=== PATIENT | male | born 1970 | race Caucasian/White ===

== ENCOUNTER → 2018-11-03 | Day surgery (SDC) | payer OTHER ==
[~2018-11-03] MED LIST: ASPIRIN325 MG PO; ATORVASTATIN CA20 MG PO; ATORVASTATIN CA40 MG PO; EPHEDRINE SULFATE INJ 50 MG/10 ML SYR ONE; FENTANYL CITRATE/PF 100MCG/2 ML INJ ONE; FLAXSEED1000 MG PO; HYOSCYAMINE SULFATE 0.5 MG/ML INJ ONE; IRON PO; JANUVIA100 MG PO; LIDOCAINE HCL 2% LOCAL INJ 5 ML SDV VIAL INJ ONE; LISINOPRIL5 MG; MEGA RED PO; METFORMIN HCL500 MG; METFORMIN HCL500 MG PO; PROPOFOL IV EMULSION 10 MG/ML 20 ML VIAL ONE; pravastatin
[2018-11-03 14:10] VITALS: BP 105/73
--- NOTE | 2018-11-03 22:54 | Operative Report ---
DATE OF PROCEDURE: 11/03/2018 PROCEDURE: EGD with biopsies and colonoscopy with polypectomy. INDICATIONS FOR EGD: Acid reflux, bloating. INDICATIONS FOR COLONOSCOPY: Surveillance colonoscopy, personal history of colon polyps, and sister with colon cancer. MEDICATIONS: The patient was done under MAC. Please anesthesiologist's note. PROCEDURE IN DETAIL: With the patient in left lateral decubitus position, a flexible fiberoptic Olympus gastroscope was introduced into the esophagus under direct visualization without any difficulty. There were some patchy erythema noted in the distal esophagus. A minute tongue of velvety red mucosa was noted to extend proximally from the GE junction, that was biopsied to rule out Cole's. There was a minute nodule noted and a small sliding hiatal hernia and that was biopsied. The scope was then advanced with ease into the stomach. Mucosa overlying the antrum and the body revealed some patchy intense erythema and moderate edema and biopsies were obtained and sent to stain for H pylori. Pylorus was of normal contour and shape, was intubated with ease and the scope was advanced all the way to the second portion of the duodenum. The scope was then withdrawn slowly and mucosa overlying the proximal second portion and the duodenal bulb grossly appeared to be within normal limits. Biopsies were obtained to rule out sprue. The scope was then withdrawn back into the stomach and retroflexed. Mucosa overlying the fundus and the cardia appeared to be within normal limits. The scope was then straightened out and was subsequently withdrawn. The patient tolerated the procedure well. IMPRESSION: 1. Distal esophagitis, mild. 2. Rule out Cole esophagus. 3. Small sliding hiatal hernia. 4. Minute nodule in hiatal hernia sac, biopsied. 5. Gastritis, biopsied. Biopsies sent to stain for Helicobacter pylori. 6. Rule out sprue. PLAN: Followup pathology. Initiate Protonix 40 mg 1 p.o. q.a.m. before meal. PROCEDURE IN DETAIL: The patient was then turned around after adequate lubrication of the anal canal. A flexible fiberoptic Olympus colonoscope was inserted into the rectum with ease and advanced all the way to the cecum. Minute polyps hot biopsied from the cecum and the polypectomy site was hemoclipped. The mucosa overlying the ascending and the transverse grossly appeared to be within normal limits. There were some patchy mild inflammatory changes noted in the left colon and random biopsies were obtained. Two polyps were hot biopsied from the sigmoid colon. The scope was then retroflexed into the distal rectum and small internal hemorrhoids were noted, none of which was actively bleeding. The scope was then straightened out and was subsequently withdrawn. The patient tolerated the procedure well. IMPRESSION: 1. Cecal polyp, hot biopsied, site hemoclipped. 2. Sigmoid colon polyps x2, hot biopsied. 3. Internal hemorrhoids, none actively bleeding. PLAN: Followup pathology. Initiate high-fiber and low-fat diet. Initiate high-fiber supplement. The patient might benefit from a followup colonoscopy in 3 years. Pelon Serrano MD [facility] – [place] /[id number] cc: Azeem Lock
--- OUTSIDE RECORDS SUMMARY | 2018-11-04 09:12 | XMS REPORT | Clinical Summary ---
Author Author [facility] Organization [facility] Address Unknown Phone Unavailable Care Team Providers Care Ammonia Nitrate Operator Name Role Phone Paul Eller MD PCP Allergies No Known Allergies Medications End Date Status Medication Sig Dispensed Refills Start Date Active traMADol (ULTRAM) 50 mg Take 50 mg by 0 tablet mouth every 6 (six) hours as needed for moderate pain. Active aspirin 325 MG tablet Take 325 mg 0 by mouth daily. On hold for surgery since 03/21/2018 Active atorvastatin (LIPITOR) 80 Take 80 mg by 0 MG tablet mouth daily. Active lisinopril Take 10 mg by 0 (PRINIVIL,ZESTRIL) 10 mg mouth daily. tablet Active celecoxib (CeleBREX) 200 Take 200 mg 0 MG capsule by mouth daily as needed for mild pain. Active garlic (GARLIQUE) 5,000 Take 1 tablet 0 mcg tablet by mouth daily. Active omega 1-jvw-lvb-fish oil Take 1 0 (FISH OIL) 100-160-1,000 capsule by mg capsule mouth daily. Active cinnamon bark (CINNAMON Take 1 tablet 0 ORAL) by mouth daily. Active metFORMIN (GLUCOPHAGE) Take 500 mg 0 500 mg tablet by mouth 2 (two) times a day with meals. 03/28/2018 Discontinued aspirin 325 MG tablet Take 325 mg 0 by mouth every morning. 03/28/2018 Discontinued lisinopril Take 10 mg by 0 (PRINIVIL,ZESTRIL) 10 mg mouth every tablet morning. 03/28/2018 Discontinued atorvastatin (LIPITOR) 80 Take 80 mg by 1 05/10/201 MG tablet mouth every 8 morning. 03/28/2018 Discontinued metFORMIN (GLUCOPHAGE) Take 500 mg 1 01/20/201 500 mg tablet by mouth 2 8 (two) times a day with meals. 03/29/2018 Discontinued gabapentin (NEURONTIN) Take 300 mg 0 300 mg capsule by mouth 3 (three) times a day. 04/29/2018 HYDROcodone-acetaminophen Prescription 0 (NORCO) 10-325 mg per provided by [address] Renner 04/29/2018 carisoprodol (SOMA) 350 Prescription 0 MG tablet provided by 8 Dr. Renner 04/05/2018 methylPREDNISolone Take 1 tablet 15 tablet 0 (MEDROL) 16 MG tablet (16 mg total) 8 by mouth 3 (three) times a day for 5 days. Active Problems Problem Noted Date Post laminectomy syndrome 09/01/2018 Lumbosacral radiculopathy at S1 03/28/2018 Diabetic mononeuropathy associated with type 2 diabetes mellitus 03/03/2018 Sciatica of left side 03/03/2018 Resolved Problems Problem Noted Date Resolved Date Lumbar radiculopathy 03/03/2018 04/25/2018 HNP (herniated nucleus pulposus), lumbar 03/03/2018 04/25/2018 Encounters Care Team Description Date Type Specialty Jaylon Renner MD Post laminectomy syndrome (Primary Dx) 09/01/2018 Office Visit Neurosurgery Isabela Pierce LVN 06/27/2018 Telephone Neurosurgery Jaylon Renner MD Diabetic mononeuropathy associated with type 2 diabetes mellitus (Primary Dx); Lumbosacral radiculopathy at S1 04/25/2018 Office Visit Neurosurgery Isabela Pierce, LIAM 03/31/2018 Orders Only Neurosurgery Isabela Pierce LVN 03/30/2018 Telephone Neurosurgery Jaylon Renner MD Lumbar Laminectomy Discectomy Left L5-S1 03/28/2018 Surgery General Surgery Aydin Gutierrez, ALGORITHM DEVELOPER 03/28/2018 Anesthesia General Surgery Event Jaylon Renner MD RehreMichael milton, Lumbosacral radiculopathy at S1 (Primary Dx) 03/28/2018 Hospital Neurosurgery - Encounter 03/29/2018 Isabela Pierce LVN 03/28/2018 Telephone Neurosurgery Jaylon Renner MD Preop testing (Primary Dx) 03/24/2018 Pre-Admit Pre-Admission Testing Testing Appointment Jaylon Renner MD Lumbar radiculopathy (Primary Dx); HNP (herniated nucleus pulposus), lumbar 03/24/2018 Office Visit Jaylon Caldwell MD Lumbar radiculopathy (Primary Dx); Diabetic mononeuropathy associated with type 2 diabetes mellitus; Sciatica of left side; HNP (herniated nucleus pulposus), lumbar 03/03/2018 Office Visit Neurosurgery Jaylon Renner MD Radiculopathy of lumbar region 03/03/2018 Hospital Radiology Encounter Jaylon Renner MD Radiculopathy of lumbar region 03/03/2018 Hospital Radiology Encounter Isabela Pierce LVN Radiculopathy of lumbar region (Primary Dx) 02/22/2018 Orders Only Neurosurgery Jaylon Renner MD 02/10/2018 Hospital Radiology Encounter Jaylon Renner MD Lumbar radiculopathy, chronic (Primary Dx) 02/10/2018 Office Visit Jaylon Caldwell MD Lumbar radiculopathy 02/10/2018 Hospital Radiology Encounter Jaylon Renner MD Lumbar radiculopathy 02/10/2018 Hospital Radiology Encounter Isabela Pierce COMPUGRAPH OPERATOR 02/09/2018 Abstract Neurosurgery Naomi Barrett 01/25/2018 Orders Only Neurosurgery Namoi Barrett Lumbar radiculopathy (Primary Dx) 01/25/2018 Orders Only Neurosurgery Chasity Ruiz MD Family history of premature CAD 01/10/2018 Hospital Procedural Cardiology Encounter Chasity Ruiz MD Family history of premature CAD (Primary Dx) 01/10/2018 Transcribe Procedural Cardiology Orders after 11/03/2017 Family History Medical History Relation Name Comments Hypertension Father Arthritis Mother Cancer Mother Relation Name Status Comments Father Mother Social History Date Tobacco Use Types Packs/Day Years Used Never Smoker Smokeless Tobacco: Never Used Alcohol Use Drinks/Week oz/Week Comments Yes 0-2 Cans of 0.0 - 1.2 4 drinks /month beer Sex Assigned at Date Recorded Not on file Industry Job Start Date Occupation Not on file Not on file Not on file Travel End Travel History Travel Start No recent travel history available. Last Filed Vital Signs Time Taken Vital Sign Reading 03/29/2018 7:45 AM CDT Blood Pressure 150/68 03/29/2018 7:45 AM CDT Pulse 59 03/29/2018 7:45 AM CDT Temperature 36.4 C (97.5 F) 03/29/2018 7:45 AM CDT Respiratory Rate 18 03/29/2018 7:45 AM CDT Oxygen Saturation 96% - Inhaled Oxygen - Concentration 03/28/2018 4:20 PM CDT Weight 79.8 kg (176 lb) 03/28/2018 4:20 PM CDT Height 182.9 cm (6') 03/28/2018 4:20 PM CDT Body Mass Index 23.87 Plan of Treatment Health Maintenance Due Date Last Done Comments DIABETIC RETINAL EYE EXAM 1968 DIABETIC FOOT EXAM 1978 INFLUENZA VACCINE 04/13/2018 Implants Device Identifier Shelf Expiration Date Model / Serial / Lot Implanted Type Area Manufactur er 09/12/2019 [id number] / / [id number] System Spine Selnt For Dural Selng Cardiovasc N/A: N/A [employer]TE[employer]RA Exact 5ml Duraseal - [id number] ular [employer] Implanted: 03/28/2018 (Quantity not Implants E NEURO on file) Procedures Comments Procedure Name Priority Date/Time Associated Diagnosis POC GLUCOSE Routine 03/29/2018 8:09 AM CDT POC GLUCOSE Routine 03/28/2018 11:16 PM CDT POC GLUCOSE Routine 03/28/2018 7:49 PM CDT XR LUMBAR SPINE 1 VW Routine 03/28/2018 6:49 PM CDT XR LUMBAR SPINE 1 VW Routine 03/28/2018 6:49 PM CDT ND AN ELECTIVE Routine 03/28/2018 ENDOTRACHEAL AIRWAY 6:25 PM CDT Procedure Note - Jeremie Parada CRNA - 03/28/2018 6:25 PM CDT Airway Date/Time: 03/28/2018 6:03 PM Performed by: JEREMIE PARADA Authorized by: STIVEN MART Location: PACU Urgency: Elective Difficult Airway: No Preoxygena cortez with 100% O2: Yes C-spine Precaution s Maintained Throughout : Yes Mask Ventilatio n: Easy mask Final Airway Type: Endotrache al airway Final Endotrache al Airway: ETT Cuffed: Yes Technique Used: Direct laryngosco py Devices/Me thods Used in Placement: Intubatin g stylet Insertion Site: Oral Blade Type: Veloz Laryngosco pe Blade/Vide olaryngosc ope Blade Size: 2 ETT Size (mm): 8.0 Cuff at minimum occlusion pressure: Yes Measured from: Gums ETT to Gums (cm): 23 Placement Verified by: CO2 detection, direct visualizat ion and equal breath sounds Laryngosco pic view: Grade I - full view of glottis Rapid Sequence Induction (RSI): No Modified RSI: No Number of Attempts at Approach: 1 Easy intubation , atraumatic to oral structures , eyes taped prior to mask ventilatio n, teeth protected LAMINECTOMY, LUMBAR 03/28/2018 Lumbar Laminectomy 6:10 PM CDT Discectomy Left L5-S1 ZZESTIMATED GFR STAT 03/28/2018 11:40 AM CDT TYPE AND SCREEN Routine 03/28/2018 11:40 AM CDT COMPREHENSIVE METABOLIC STAT 03/28/2018 PANEL 11:40 AM CDT PARTIAL THROMBOPLASTIN STAT 03/28/2018 TIME (PTT) 11:40 AM CDT PROTHROMBIN TIME WITH INR STAT 03/28/2018 11:40 AM CDT HC COMPLETE BLD COUNT STAT 03/28/2018 W/AUTO DIFF 11:40 AM CDT SURGICAL PATHOLOGY Routine 03/28/2018 REQUEST 9:13 AM CDT ZZESTIMATED GFR Routine 03/24/2018 4:23 PM CDT HEMOGLOBIN A1C Routine 03/24/2018 Preop testing 4:23 PM CDT BASIC METABOLIC PANEL Routine 03/24/2018 Preop testing 4:23 PM CDT HC COMPLETE BLD COUNT Routine 03/24/2018 Preop testing W/AUTO DIFF 4:[address] POST MYELOGRAM LUMBAR Routine 03/03/2018 Radiculopathy of lumbar 1:15 PM CDT region IR MYELOGRAM LUMB INCL Routine 03/03/2018 Radiculopathy of lumbar INJ W S&I 12:38 PM CDT region POC GLUCOSE Routine 03/03/2018 11:42 AM CDT XR SPINE SCOLIOSIS 2-3 Routine 02/10/2018 Lumbar radiculopathy VIEWS 1:58 PM CDT XR LUMBAR SPINE COMPLETE Routine 02/10/2018 Lumbar radiculopathy W BENDING 1:58 PM CDT MRI SPINE EXTERNAL STUDY Routine 01/20/2018 3:[address] HEART SCAN W PHYSICIAN Routine 01/10/2018 Family history of ORDER 3:22 PM CDT premature CAD after 11/03/2017 Results * POC glucose (03/29/2018 8:09 AM CDT) Only the most recent of 4 results within the time period is included. POC glucose 212 (H) 65 - 99 mg/dL [facility] DEPARTMENT OF Comment: PATHOLOGY AND [facility] Notified RN GENOMIC MEDICINE Meter ID: [id number] Plumber'S Helper: Rebecca Vinson Performing Organization Address City/State/Zipcode Phone Number [facility] DEPARTMENT OF [address] [place] [address] PATHOLOGY AND GENOMIC MEDICINE * XR Lumbar Spine 1 Vw (03/28/2018 6:49 PM CDT) Only the most recent of 2 results within the time period is included. Narrative Performed At EXAMINATION:XR LUMBAR SPINE 1 VW RADIANT COMPARISON:1827 hours. CLINICAL HISTORY:Intraoperative film. COMMENTS:Lateral views lumbar spine provided. FINDINGS:The lowest functional disc level is assumed to be L5-S1. IMPRESSION:The deepest posterior metallic pointer has its tip at the lower L5 vertebral body level. [facility]-[id number] Procedure Note Interface, Radiology Results Incoming - 03/28/2018 6:55 PM CDT EXAMINATION: XR LUMBAR SPINE 1 VW COMPARISON: 1827 hours. CLINICAL HISTORY: Intraoperative film. COMMENTS: Lateral views lumbar spine provided. FINDINGS: The lowest functional disc level is assumed to be L5-S1. IMPRESSION: The deepest posterior metallic pointer has its tip at the lower L5 vertebral body level. [facility]-[id number] Performing Organization Address [facility]/Zipcode Phone Number [facility] [address] [place] [address] * Estimated GFR (03/28/2018 11:40 AM CDT) Only the most recent of 2 results within the time period is included. GFR Non Af Amer 64 mL/min/1.73 m2 [facility] DEPARTMENT OF PATHOLOGY AND [employer] MEDICINE GFR Af Amer 78 mL/min/1.73 m2 [facility] DEPARTMENT OF Comment: PATHOLOGY AND Chronic kidney disease: <60 GENOMIC MEDICINE mL/min/1.73m2 Kidney failure: <15 mL/min/1.73m2 The estimated GFR is calculated from the IDMS-traceable Modification of Diet in Renal Disease Equation. The accuracy of the calculation is poor when the creatinine is normal. Calculated values >90 mL/min/1.73m2 are not reported. This equation has not been validated in children (<18 years), women, the elderly (>70 years), or ethnic groups other than Caucasians and Americans. Specimen Plasma specimen Performing Organization Address [facility] Phone Number [facility] DEPARTMENT [address] [place] [address] PATHOLOGY AND [employer] MEDICINE * Partial thromboplastin time, activated (03/28/2018 11:40 AM CDT) PTT 30.9 23.0 - 36.0 sec [facility] DEPARTMENT OF Comment: PATHOLOGY AND PTT therapeutic range for [facility] unfractionated heparin is 61.0-112.0 seconds which corresponds to Anti-Xa 0.3-0.7 U/ml. Specimen Blood Performing Organization Address [facility]/Zipcode Phone Number [facility] DEPARTMENT OF [address] [place] [address] PATHOLOGY AND [employer] MEDICINE * Prothrombin time with INR (03/28/2018 11:40 AM CDT) Prothrombin time 12.8 12.0 - 15.0 sec [facility] DEPARTMENT OF PATHOLOGY AND GENOMIC MEDICINE INR 1.0 [facility] DEPARTMENT OF Comment: PATHOLOGY AND The International Normalized [facility] MEDICINE Ratio (INR) is a therapeutic monitoring tool for patients who are stable on oral anticoagulant therapy. An INR of 2.0-3.0 is suggested for deep vein thrombosis/pulmonary embolism. Specimen Blood Performing Organization Address City/[facility]/Zipcode Phone Number [address] [address] PATHOLOGY AND GENOMIC MEDICINE * CBC with platelet and differential (03/28/2018 11:40 AM CDT) Only the most recent of 2 results within the time period is included. WBC 5.92 4.50 - 11.00 k/uL [facility] DEPARTMENT OF PATHOLOGY AND GENOMIC MEDICINE RBC 5.55 4.40 - 6.00 m/uL [facility] DEPARTMENT OF PATHOLOGY AND GENOMIC MEDICINE HGB 15.5 14.0 - 18.0 g/dL [facility] DEPARTMENT OF PATHOLOGY AND GENOMIC MEDICINE HCT 48.0 41.0 - 51.0 % [facility] DEPARTMENT OF PATHOLOGY AND GENOMIC MEDICINE MCV 86.5 82.0 - 100.0 fL [facility] DEPARTMENT OF PATHOLOGY AND GENOMIC MEDICINE MCH 27.9 27.0 - 34.0 pg [facility] DEPARTMENT OF PATHOLOGY AND GENOMIC MEDICINE MCHC 32.3 31.0 - 37.0 g/dL [facility] DEPARTMENT OF PATHOLOGY AND GENOMIC MEDICINE RDW - SD 41.5 37.0 - 55.0 fL [facility] DEPARTMENT OF PATHOLOGY AND GENOMIC MEDICINE MPV 10.0 8.8 - 13.2 fL [facility] DEPARTMENT OF PATHOLOGY AND GENOMIC MEDICINE Platelet count 195 150 - 400 k/uL [facility] DEPARTMENT OF PATHOLOGY AND GENOMIC MEDICINE Nucleated RBC 0.00 /100 WBC [facility] DEPARTMENT OF PATHOLOGY AND GENOMIC MEDICINE Neutrophils 56.4 39.0 - 69.0 % [facility] DEPARTMENT OF PATHOLOGY AND GENOMIC MEDICINE Lymphocytes 34.3 25.0 - 45.0 % [facility] DEPARTMENT OF PATHOLOGY AND GENOMIC MEDICINE Monocytes 7.8 0.0 - 10.0 % [facility] DEPARTMENT OF PATHOLOGY AND GENOMIC MEDICINE Eosinophils 0.8 0.0 - 5.0 % [facility] DEPARTMENT OF PATHOLOGY AND GENOMIC MEDICINE Basophils 0.5 0.0 - 1.0 % [facility] DEPARTMENT OF PATHOLOGY AND GENOMIC MEDICINE Immature granulocytes 0.2Comment: "Immature 0.0 - 1.0 % [facility] DEPARTMENT OF granulocytes" (promyelocytes, PATHOLOGY AND myelocytes, metamyelocytes) GENOMIC MEDICINE Specimen Blood Performing Organization Address City/[facility]/Zipcode Phone Number [facility] [address] [place] [id number] PATHOLOGY AND GENOMIC MEDICINE * Type and screen (03/28/2018 11:40 AM CDT) ABO grouping A [facility] DEPARTMENT OF PATHOLOGY AND GENOMIC MEDICINE Rh type NEG [facility] DEPARTMENT OF PATHOLOGY AND GENOMIC MEDICINE Antibody screen (gel) NEG [facility] DEPARTMENT OF PATHOLOGY AND GENOMIC MEDICINE Specimen Blood Performing Organization Address City/[facility] Phone Number [facility] DEPARTMENT OF [address] [place] [address] PATHOLOGY AND GENOMIC MEDICINE * Comprehensive metabolic panel (03/28/2018 11:40 AM CDT) Sodium 138 135 - 148 mEq/L [facility] DEPARTMENT OF PATHOLOGY AND GENOMIC MEDICINE Potassium 3.8 3.5 - 5.0 mEq/L [facility] DEPARTMENT OF PATHOLOGY AND GENOMIC MEDICINE Chloride 97 (L) 98 - 112 mEq/L [facility] DEPARTMENT OF PATHOLOGY AND GENOMIC MEDICINE CO2 30 24 - 31 mEq/L [facility] DEPARTMENT OF PATHOLOGY AND GENOMIC MEDICINE Anion gap 11@ANIO 7 - 15 mEq/L [facility] DEPARTMENT OF PATHOLOGY AND GENOMIC MEDICINE BUN 17 6 - 20 mg/dL [facility] DEPARTMENT OF PATHOLOGY AND GENOMIC MEDICINE Creatinine 1.2 0.7 - 1.2 mg/dL [facility] DEPARTMENT OF PATHOLOGY AND GENOMIC MEDICINE Glucose 147 (H) 65 - 99 mg/dL [facility] DEPARTMENT OF PATHOLOGY AND GENOMIC MEDICINE Calcium 9.5 8.3 - 10.2 mg/dL [facility] DEPARTMENT OF PATHOLOGY AND GENOMIC MEDICINE Protein 7.5 6.3 - 8.3 g/dL [facility] DEPARTMENT OF Comment: PATHOLOGY AND [place] GENOMIC MEDICINE 4.6-7.0 g/dL 1 week 4.4-7.6 g/dL 7 months-1year 5.1-7.3 g/dL 1-2 years5.6-7 .5 g/dL >3 years6.0-8 .0 g/dL 18-150 6.3-8.3 g/dL Albumin 4.0 3.5 - 5.0 g/dL [facility] DEPARTMENT OF PATHOLOGY AND GENOMIC MEDICINE A/G ratio 1.1 0.7 - 3.8 [facility] DEPARTMENT OF PATHOLOGY AND GENOMIC MEDICINE Alkaline phosphatase 55 40 - 129 U/L [facility] DEPARTMENT OF PATHOLOGY AND GENOMIC MEDICINE AST 19 10 - 50 U/L [facility] DEPARTMENT OF PATHOLOGY AND GENOMIC MEDICINE ALT 20 5 - 50 U/L [facility] DEPARTMENT OF PATHOLOGY AND GENOMIC MEDICINE Total bilirubin 0.5 0.0 - 1.2 mg/dL [facility] DEPARTMENT OF PATHOLOGY AND GENOMIC MEDICINE Specimen Plasma specimen Performing Organization Address City/[facility]/Zipcode Phone Number [facility] DEPARTMENT [address] [address] PATHOLOGY AND GENOMIC MEDICINE * Surgical pathology request (03/28/2018 9:13 AM CDT) [facility] DEPARTMENT OF PATHOLOGY AND GENOMIC MEDICINE Surgical pathology report See link below for PDF Lab [facility] DEPARTMENT OF Report PATHOLOGY AND GENOMIC MEDICINE Result status This is Final Report to [facility] DEPARTMENT OF [id number] PATHOLOGY AND GENOMIC MEDICINE Performing Organization Address City/[facility] Phone Number [address] [address] PATHOLOGY AND GENOMIC MEDICINE * Hemoglobin A1c (03/24/2018 4:23 PM CDT) Hemoglobin A1C 7.6 (H) 4.0 - 5.6 % [facility] DEPARTMENT OF Comment: PATHOLOGY AND HbA1c cutoffs for diagnosing GENOMIC MEDICINE diabetes: 4.0% - 5.6%=normal 5.7% - 6.4%=increased risk for diabetes (prediabetes) >=6.5%=diabetes Goals for glycemic control (ADA 2016) < 7.0%Target for non adults with diabetes. More or less stringent targets may be appropriate for individual patients. <7.5% Target for Children and adolescents with type 1 diabetes. Specimen Blood Performing Organization Address City/[facility] Phone Number [address] [address] PATHOLOGY AND GENOMIC MEDICINE * Basic metabolic panel (03/24/2018 4:23 PM CDT) Sodium 141 135 - 148 mEq/L [facility] DEPARTMENT OF PATHOLOGY AND GENOMIC MEDICINE Potassium 4.1 3.5 - 5.0 mEq/L [facility] DEPARTMENT OF PATHOLOGY AND GENOMIC MEDICINE Chloride 103 98 - 112 mEq/L [facility] DEPARTMENT OF PATHOLOGY AND GENOMIC MEDICINE CO2 25 24 - 31 mEq/L [facility] DEPARTMENT OF PATHOLOGY AND GENOMIC MEDICINE Anion gap 13@ANIO 7 - 15 mEq/L [facility] DEPARTMENT OF PATHOLOGY AND GENOMIC MEDICINE BUN 17 6 - 20 mg/dL [facility] DEPARTMENT OF PATHOLOGY AND GENOMIC MEDICINE Creatinine 1.0 0.7 - 1.2 mg/dL [facility] DEPARTMENT OF PATHOLOGY AND GENOMIC MEDICINE Glucose 133 (H) 65 - 99 mg/dL [facility] DEPARTMENT OF PATHOLOGY AND GENOMIC MEDICINE Calcium 9.4 8.3 - 10.2 mg/dL [facility] DEPARTMENT OF PATHOLOGY AND GENOMIC MEDICINE Specimen Plasma specimen Performing Organization Address City/State/Zipcode Phone Number [facility] DEPARTMENT OF [address] [place] [address] PATHOLOGY AND GENOMIC MEDICINE * CT Post Myelogram Lumbar (03/03/2018 1:15 PM CDT) Narrative Performed At EXAMINATION:CT POST MYELOGRAM LUMBAR HM RADIANT CLINICAL HISTORY:Lumbar radiculopathy with low back and left leg pain with subjective weakness and difficulty walking. COMPARISON: Lumbar spinal MRI from [facility] on 01/20/2018 and lumbar myelogram on 03/03/2018. TECHNIQUE: Lumbar CT myelogram with multiplanar reconstruction after intrathecal instillation of contrast performed using radiation dose reduction techniques.Technical factors are evaluated and adjusted to ensure appropriate moderation of exposure. Automated dose management technology is applied to adjust radiation exposure while achieving a diagnostic quality image. FINDINGS: There are 5 lumbar type vertebrae, and the last functional disc is presumed to be L5-S1. There is mild straightening of normal lumbar lordosis without malalignment. The L5-S1 disc is moderately narrowed with adjacent chronic discogenic endplate changes. Vertebral body heights are preserved. There is no evidence of acute fracture, suspicious osteolytic or osteoblastic lesion. The distal spinal cord appears unremarkable. The conus medullaris terminates at the L1-2 level and appears unremarkable. The cauda equina is unremarkable. L5-S1: Broad-based central-left paracentral disc protrusion results in left subarticular lateral recess stenosis encroaching on the traversing left S1 nerve root, partially effacing its root sleeve on the preceding lumbar myelogram. There are mild bilateral neural foraminal stenoses. L4-5: There is mild disc bulge with no significant spinal canal or neural foraminal stenosis. L3-4: There is no significant posterior disc pathology, spinal canal or neural foraminal stenosis. L2-3: There is no significant posterior disc pathology, spinal canal or neural foraminal stenosis. L1-2: There is no significant posterior disc pathology, spinal canal or neural foraminal stenosis. T12-L1: There is no significant posterior disc pathology, spinal canal or neural foraminal stenosis. Visualized paraspinal soft tissues are unremarkable. There is partial ankylosis of the right sacroiliac joint and bridging anterior osteophytes of left more than right sacroiliac joints. IMPRESSION: 1. At L5-S1, broad-based central-left paracentral disc protrusion encroaches on the traversing left S1 nerve root. 2. 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 [facility]-[id number] Procedure Note Hm Interface, Radiology Results Incoming - 03/03/2018 5:50 PM CDT EXAMINATION: CT POST MYELOGRAM LUMBAR CLINICAL HISTORY: Lumbar radiculopathy with low back and left leg pain with subjective weakness and difficulty walking. COMPARISON: Lumbar spinal MRI from [facility] on 01/20/2018 and lumbar myelogram on 03/03/2018. TECHNIQUE: Lumbar CT myelogram with multiplanar reconstruction after intrathecal instillation of contrast performed using radiation dose reduction techniques. Technical factors are evaluated and adjusted to ensure appropriate moderation of exposure. Automated dose management technology is applied to adjust radiation exposure while achieving a diagnostic quality image. FINDINGS: There are 5 lumbar type vertebrae, and the last functional disc is presumed to be L5-S1. There is mild straightening of normal lumbar lordosis without malalignment. The L5-S1 disc is moderately narrowed with adjacent chronic discogenic endplate changes. Vertebral body heights are preserved. There is no evidence of acute fracture, suspicious osteolytic or osteoblastic lesion. The distal spinal cord appears unremarkable. The conus medullaris terminates at the L1-2 level and appears unremarkable. The cauda equina is unremarkable. L5-S1: Broad-based central-left paracentral disc protrusion results in left subarticular lateral recess stenosis encroaching on the traversing left S1 nerve root, partially effacing its root sleeve on the preceding lumbar myelogram. There are mild bilateral neural foraminal stenoses. L4-5: There is mild disc bulge with no significant spinal canal or neural foraminal stenosis. L3-4: There is no significant posterior disc pathology, spinal canal or neural foraminal stenosis. L2-3: There is no significant posterior disc pathology, spinal canal or neural foraminal stenosis. L1-2: There is no significant posterior disc pathology, spinal canal or neural foraminal stenosis. T12-L1: There is no significant posterior disc pathology, spinal canal or neural foraminal stenosis. Visualized paraspinal soft tissues are unremarkable. There is partial ankylosis of the right sacroiliac joint and bridging anterior osteophytes of left more than right sacroiliac joints. IMPRESSION: 1. At L5-S1, broad-based central-left paracentral disc protrusion encroaches on the traversing left S1 nerve root. 2. 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 [facility]-[id number] Performing Organization Address City/State/Zipcode Phone Number [facility] [address] [place] [address] * IR Myelogram Lumb Incl Inj W S&I (03/03/2018 12:38 PM CDT) Narrative Performed At EXAMINATION:IR MYELOGRAM LUMB INCL INJ W S&I [facility] CLINICAL HISTORY:Lumbar radiculopathy with low back and left leg pain with subjective weakness and difficulty walking. COMPARISON:Lumbar spinal MRI from [facility] on 01/20/2018. TECHNIQUE: After informed consent was obtained, the patient was placed prone on the fluoroscopy table. The back was prepped and draped in sterile manner. The L3-4 interspinous space was identified, and 1% lidocaine was used for local anesthesia. Under fluoroscopic guidance, a 3.5-inch 27-gauge Quincke needle was advanced into the L3-4 interspinous space until clear colorless CSF returned from the hub. Subsequently, 12 mL of iohexol 240 was instilled into the thecal sac. The needle was then removed. Multiple views of the lumbar spine were obtained. The patient tolerated the procedure well with no immediate complication. Total Fluoroscopy Time: 0.1 minute. Spot Images: 14. Reference air kerma: 25 mGy. IMPRESSION: There are 5 lumbar type vertebrae, and the last functional disc is presumed to be L5-S1. There is mild straightening of normal lumbar lordosis without malalignment. The L5-S1 disc is moderately narrowed. Vertebral body heights are preserved. At L5-S1, there is ventral extradural filling defect eccentric to the left effacing the traversing left S1 root sleeve. At L3-4 and L4-5, there are minimal ventral extradural filling defects with no significant spinal canal stenosis. Lumbar root sleeves at these levels fill within normal limits. Lumbar CT myelogram to follow. [facility]-[id number] Procedure Note Interface, Radiology Results Incoming - 03/03/2018 5:54 PM CDT EXAMINATION: IR MYELOGRAM LUMB INCL INJ W S&I CLINICAL HISTORY: Lumbar radiculopathy with low back and left leg pain with subjective weakness and difficulty walking. COMPARISON: Lumbar spinal MRI from [facility] on 01/20/2018. TECHNIQUE: After informed consent was obtained, the patient was placed prone on the fluoroscopy table. The back was prepped and draped in sterile manner. The L3-4 interspinous space was identified, and 1% lidocaine was used for local anesthesia. Under fluoroscopic guidance, a 3.5-inch 27-gauge Quincke needle was advanced into the L3-4 interspinous space until clear colorless CSF returned from the hub. Subsequently, 12 mL of iohexol 240 was instilled into the thecal sac. The needle was then removed. Multiple views of the lumbar spine were obtained. The patient tolerated the procedure well with no immediate complication. Total Fluoroscopy Time: 0.1 minute. Spot Images: 14. Reference air kerma: 25 mGy. IMPRESSION: There are 5 lumbar type vertebrae, and the last functional disc is presumed to be L5-S1. There is mild straightening of normal lumbar lordosis without malalignment. The L5-S1 disc is moderately narrowed. Vertebral body heights are preserved. At L5-S1, there is ventral extradural filling defect eccentric to the left effacing the traversing left S1 root sleeve. At L3-4 and L4-5, there are minimal ventral extradural filling defects with no significant spinal canal stenosis. Lumbar root sleeves at these levels fill within normal limits. Lumbar CT myelogram to follow. [facility]-[id number] Performing Organization Address City/State/Zipcode Phone Number [facility] [address] [place] [address] * XR Spine Scoliosos 2-3 Views (02/10/2018 1:58 PM CDT) Narrative Performed At EXAMINATION: XR SPINE SC[facility]WS [facility] CLINICAL HISTORY: M54.16 Radiculopathylumbar region, BACK PAINUNSPECIFIED COMPARISON:None IMPRESSION: 12 rib-bearing thoracic vertebrae and 5 lumbar type vertebral bodies. Minimal left convex lumbar curvature with Martinez angle measuring 6 degrees measured from the superior endplate of T12 to the inferior endplate of L4. Mild thoracic kyphosis with Martinez angle measuring 50 degrees from the superior endplate of T4 to the inferior endplate of T11. A coronal faizan line drawn inferiorly from the mid C7 vertebral body terminates approximately 3 mm to the left of the mid S1 level. A sagittal faizan line drawn inferiorly from the mid C7 vertebral body terminates approximately 1.5 cm anterior to the posterior aspect of the superior endplate of S1. [id number] Procedure Note Interface, Radiology Results Incoming 02/10/2018 3:14 PM CDT EXAMINATION: XR SPINE SCOLIOSIS 2-3 VIEWS CLINICAL HISTORY: M54.16 Radiculopathy lumbar region, BACK PAIN UNSPECIFIED COMPARISON: None IMPRESSION: 12 rib-bearing thoracic vertebrae and 5 lumbar type vertebral bodies. Minimal left convex lumbar curvature with Martinez angle measuring 6 degrees measured from the superior endplate of T12 to the inferior endplate of L4. Mild thoracic kyphosis with Martinez angle measuring 50 degrees from the superior endplate of T4 to the inferior endplate of T11. A coronal faizan line drawn inferiorly from the mid C7 vertebral body terminates approximately 3 mm to the left of the mid S1 level. A sagittal faizan line drawn inferiorly from the mid C7 vertebral body terminates approximately 1.5 cm anterior to the posterior aspect of the superior endplate of S1. [facility]-[id number] Performing Organization Address City/State/Zipcode Phone Number [facility] [address] [place] [address] * XR Lumbar Spine Complete W Flex and Ext (02/10/2018 1:58 PM CDT) Narrative Performed At EXAMINATION:XR LUMBAR SPINE COMPLETE W FLEX & EXTEND [facility] CLINICAL HISTORY:M54.16 Radiculopathylumbar region, BACK PAINUNSPECIFIED, WEAKNESSLEGPROGRESSIVE COMPARISON:None. IMPRESSION: There are 5 nonrib-bearing lumbar vertebrae with minimal levorotoscoliosis centered at L3. There is degenerative disc space narrowing at L5-S1. There is no definite spondylolysis or spondylolisthesis. Flexion-extension views demonstrate no abnormal displacement. [facility]-[id number] Procedure Note Interface, Radiology Results Incoming 02/10/2018 2:51 PM CDT EXAMINATION: XR LUMBAR SPINE COMPLETE W FLEX & EXTEND CLINICAL HISTORY: M54.16 Radiculopathy lumbar region, BACK PAIN UNSPECIFIED, WEAKNESS LEG PROGRESSIVE COMPARISON: None. IMPRESSION: There are 5 nonrib-bearing lumbar vertebrae with minimal levorotoscoliosis centered at L3. There is degenerative disc space narrowing at L5-S1. There is no definite spondylolysis or spondylolisthesis. Flexion-extension views demonstrate no abnormal displacement. [facility]-[id number] Performing Organization Address [facility]/Zipcode Phone Number [facility] [address] [place] [address] * MRI Spine External Study (01/20/2018 3:19 PM CDT) Narrative Performed At This exam was not acquired at a [facility] facility and has not been [facility] interpreted by a [facility] Provider.The exam was imported into our imaging system for comparisons purposes. Performing Organization Address [facility] Phone Number [facility] [address] [place] [address] * Cv ct heart scan w physician order (self pay) (01/10/2018 3:22 PM CDT) Narrative Performed At [facility] [address] [place] [address] CT Calcium Scoring Report Pat.Name:SEVERIANOSHON JR Pat.ID:[id number] St.Date: 01/10/2018 Refer.MD:CHASITY RUIZ MD Exam Time: 3:10:00 PMStudy Type:CT Calcium Scoring Height:72inWeight:185lb BSA: 2.06 m2 DOBAge:1970,47Y Sex: MALEHR:88 bpm Nuclear Tech:RT Guido(MS)(CT), [facility] Pat. Stat.:Outpatient CPT - 4: [place] [employer] Event ID:[id number] Order ID:[id number] Procedures:Calcium Scoring Race:C SUMMARY: Technique: Sequential 3mm CT cuts were obtained through the chest using the Siemens Somatom Force CT scanner with ECG gating.Interactive image viewing and volumetric display and analysis were also performed.The CAC score was quantified using the Agaston scoring method. Non-contrast Cardiac CT results are as follows: The total Coronary Artery Calcium Score (CACS) is 7.Calcium is distributed in the coronary arteries as follows: Left main: 0 .Left Anterior Descending (LAD): 0 .Left Circumflex (LCx): 0 .Right Coronary Artery (RCA): 7 . The non-contrast CT shows a normal cardiac size, no pericardial abnormalities, a upper normal aortic root of 3.7 cm, a normal ascending thoracic aorta of 2.9 cm, and a normal descending thoracic aorta of 2.1cm.The left main and right coronary arteries appear to originate normally from the left and right sinus of Valsalva.The right coronary artery is dominant. Non-Cardiac Findings:Limited lung mirza demonstrate no significant abnormality. Conclusion: Abnormal non-contrast cardiac CT. The coronary artery calcium score indicates a minimal extent of coronary atherosclerosis with a <0.5% / year risk of a major cardiac event.The CACS is at the 69 th percentile based on age and gender. Recommendation: (1) Intensive risk factor modification is indicated to prevent further progression of coronary atherosclerosis which should include treatment of hyperlipidemia. Signed 01/11/2018 04:44 PM Breezy Cai MD Procedure Note Interface, Radiology Results In - 01/11/2018 4:44 PM CDT [facility] Card[facility] CT [address] [place] [address] CT Calcium Scoring Report Pat.Name: SHON MOE Henry MACDONALD Pat.ID: [id number] St.Date: 01/10/2018 Refer.MD: CHASITY RUIZ MD Exam Time: 3:10:00 PM Study Type:CT Calcium Scoring Height: 72in Weight: 185lb BSA: 2.06 m2 Age: 1 1970,47Y Sex: MALE HR: 88 bpm Nuclear Tech:RT Guido(NM)(CT), [facility] Pat. Stat.:Outpatient CPT - 4: [facility] [employer] Event ID:[id number] Order ID: [id number] Procedures:Calcium Scoring Race: C SUMMARY: Technique: Sequential 3mm CT cuts were obtained through the chest using the Siemens Somatom Force CT scanner with ECG gating. Interactive image viewing and volumetric display and analysis were also performed. The CAC score was quantified using the Agaston scoring method. Non-contrast Cardiac CT results are as follows: The total Coronary Artery Calcium Score (CACS) is 7. Calcium is distributed in the coronary arteries as follows: Left main: 0 . Left Anterior Descending (LAD): 0 . Left Circumflex (LCx): 0 . Right Coronary Artery (RCA): 7 . The non-contrast CT shows a normal cardiac size, no pericardial abnormalities, a upper normal aortic root of 3.7 cm, a normal ascending thoracic aorta of 2.9 cm, and a normal descending thoracic aorta of 2.1cm. The left main and right coronary arteries appear to originate normally from the left and right sinus of Valsalva. The right coronary artery is dominant. Non-Cardiac Findings: Limited lung mirza demonstrate no significant abnormality. Conclusion: Abnormal non-contrast cardiac CT. The coronary artery calcium score indicates a minimal extent of coronary atherosclerosis with a <0.5% / year risk of a major cardiac event. The CACS is at the 69 th percentile based on age and gender. Recommendation: (1) Intensive risk factor modification is indicated to prevent further progression of coronary atherosclerosis which should include treatment of hyperlipidemia. Signed 01/11/2018 04:44 PM Breezy Cai MD Performing Organization Address City/State/Zipcode Phone Number [facility] [address] [place] [address] after 11/03/2017 Insurance Payer Benefit Subscriber ID Type Phone Address Plan / Group CIGNA CIGNA OPEN xxxxxxxxx O ACCESS/NET WORK Advance Directives Patient has advance care planning documents, and code status on file. For more i nformation, please contact: Js Alfaro [address] [place] [address] Date Inactivated Comments Code Status Date Activated 03/29/2018 12:42 PM Full Code 03/28/2018 10:53 PM Code Status decision reached by: Patient
--- OUTSIDE RECORDS SUMMARY | 2018-11-04 09:12 | XMS REPORT | Encounter Summary ---
Author Organization Unknown Address [address] [place] [address] Phone [phone] Care Team Providers Care Pediatric Immunologist Name Role Phone Dr. Azeem Lock 3 [phone] Pelon Serrano MD 4 [phone] Reason for Visit Annual physical - male with PSA Instructions 1. Adult health examination urinalysis, dipstick CMP, serum or plasma lipid panel, serum CBC w/ auto diff TSH, serum or plasma T4, free, serum T3, free, serum or plasma 2. Body mass index 20-24 - normal 3. Hyperlipidemia high cholesterol: care instructions 4. Hypertensive disorder 5. Diabetes mellitus HbA1c (hemoglobin A1c), blood microalbumin:creatinine ratio, urine 6. Screening for malignant neoplasm of prostate PSA, serum or plasma 7. Hepatitis C screening hepatitis C virus RNA, quant, PCR, serum or plasma Discussion Note: None recorded. Plan of Care Reminders Provider Appointments None recorded. Lab Urinalysis, Dipstick 10/26/2018 [facility] PSA, Serum or Plasma 10/26/2018 [facility] Hepatitis C Virus RNA, Quant, PCR, Serum or Plasma 10/26/2018 [facility] CMP, Serum or Plasma 10/26/2018 [facility] Lipid Panel, Serum 10/26/2018 [facility] CBC W/ Auto Diff 10/26/2018 [facility] TSH, Serum or Plasma 10/26/2018 [facility] T4, Free, Serum 10/26/2018 [facility] T3, Free, Serum or Plasma 10/26/2018 [facility] HbA1C (Hemoglobin a1C), Blood 10/26/2018 [facility] Microalbumin:creatinine Ratio, Urine 10/26/2018 [facility] Referral None recorded. Procedures None recorded. Surgeries None recorded. Imaging None recorded. Medications Name Start Date aspirin 325 mg tablet Take 1 tablet every day by oral route. atorvastatin 80 mg tablet Take 1 tablet every day by oral route for 30 days. flaxseed oil 1,000 mg capsule Take 1 capsule every day by oral route. iron 1 PO QD Januvia 100 mg tablet Take 1 tablet every day by oral route for 30 days. lisinopril 10 mg tablet Take 1 tablet every day by oral route for 30 days. metformin 500 mg tablet Take 1 tablet 3 times a day by oral route for 30 days. omega 3 500 [id number] 500 mcg-FA 1 mg-B6 12.5 mg-phytosterol cap Take 1 capsule every day by oral route. Medications Administered None recorded. Vitals Height Weight BMI Blood Pressure 6 ft 183.6 lbs 24.9 kg/m2 (1) 142/66 mm[Hg] (2) 138/68 mm[Hg] Lab Results Date Name Specimen Result Interpretation Description Value Range Status Address Urinalysis, Dipstick Color Color yellow [facility] ([facility]) Fernando Salinas: [address], [place] Color Appearance cloudy [facility] ([facility]) [place]: [address], [place] Color Glucose negative [facility] ([facility]) Fernando [place]inas: [address], [place] Color Bilirubin negative [facility] ([facility]) Fernando Salinas: [address], [place] Color Ketones negative [facility] ([facility]) Fernando Salinas: [address], [place] Color Specific Boykins 1.020 [facility] ([facility]) Fernando [place]inas: [address], [place] Color Blood negative [facility] [place]: [address] [place] Color PH 5.5 [facility] [place]: [address] [place] Color Protein negative [facility] ([facility]) Fernando Salinas: [address], [place] Color Urobilinogen 0.2 [facility] ([facility]) Fernando Salinas: [address], [place] Color Nitrites negative [facility] ([facility]) Fernando Salinas: [address], [place] Color Leukocytes negative [facility] ([facility]) Fernando Salinas: [address], [place] Allergies Code Code System Name Reaction Severity Status Onset NKDA Problems Name Status Onset Date Source Diabetes Mellitus Active 10/26/2018 Hyperlipidemia Active 10/26/2018 Hypertensive Disorder Active 10/26/2018 Procedures Date Name Performed by 09/13/2017 Back Surgery Information not available 09/13/2016 Colonoscopy Information not available Vaccine List Vaccine Type Tdap 09/13/2015 Social History Smoking Status Never Smoker Past Encounters 10/26/2018 Adult Health Examination; Body Mass Index 20-24 - Normal; Hyperlipidemia; Hypertensive Disorder; Diabetes Mellitus; Screening for Malignant Neoplasm of Prostate; Hepatitis C Screening Azeem Lock MD: [address] , [address], [place] [address], Ph. History of Present Illness Hypertension Reported By: Patient HPI: Quality: pressure. Severity: severe. Duration: has noted for years. Onset/Timing: better. Context: exertion. Alleviating Factors: relieved with rest, medication. Aggravating Factors: worse with activity. Self Care: not under emotional stress Diabetes F/U Reported By: Patient HPI: Review finger sticks: normal range of home blood sugars (in the low 100s). Context: seeing eye doctor regularly, checking feet regularly. Associated Symptoms: no weight gain, no weight loss, no dizziness, no sweats, no headaches, no confusion, no increased thirst, no increased appetite, no increased urination, no blurred vision, no numbness of feet, no calluses on feet Hyperlipidemia Reported By: Patient HPI: Type of hyperlipidemia: combined, hypercholesterolemia. Control: usually well controlled. Compliance: compliant, compliant with diet, exercises. Complications: no coronary artery disease, no peripheral artery disease, no cardiovascular disease Note:here for PE.doing well Review of Systems:ROS as noted in the HPI Review of Systems None recorded. Physical Exam General Adult Exam (male) Reported By: Patient Constitutional: General Appearance: healthy-appearing, well-nourished, well-developed. Level of Distress: NAD Psychiatric: Mental Status: active and alert. Orientation: to time, to place, to person. Memory: recent memory normal Head: Head: normocephalic Eyes: Pupils: PERRLA. Corneas: grossly intact. EOM: EOMI. Sclerae: non-icteric ENMT: Ears: EACs clear, TMs clear, TM mobility normal. Hearing: no hearing loss. Lips, Teeth, and Gums: normal dentition. Oropharynx: no erythema, no exudates Neck: Neck: supple, no masses. Lymph Nodes: no cervical LAD, no supraclavicular LAD. Thyroid: no enlargement, non-tender Lungs: Respiratory effort: no dyspnea. Auscultation: breath sounds normal, good air movement Cardiovascular: Heart Auscultation: normal S1, normal S2, no murmurs. Neck vessels: no carotid bruits Abdomen: Bowel Sounds: normal. Inspection and Palpation: no tenderness. Liver: non-tender, no hepatomegaly. Spleen: no splenomegaly Musculoskeletal:: Joints, Bones, and Muscles: normal movement of all extremities. Extremities: no edema Neurologic: Cranial Nerves: grossly intact. Reflexes: DTRs 2+ bilaterally throughout Skin: Inspection and palpation: no rash, no lesions
--- OUTSIDE RECORDS SUMMARY | 2018-11-04 09:13 | XMS REPORT | Encounter Summary ---
Author Organization Unknown Address [address] [place] [id number] Phone [phone] Care Team Providers Care Regional Branch Manager Name Role Phone Dr. Azeem Lock 3 [phone] Pelon Serrano MD 4 [phone] Reason for Visit lab only visit Instructions 1. Fatigue iron, serum Discussion Note: None recorded. Patient educational handouts: No information available. Plan of Care Reminders Provider Appointments None recorded. Lab Iron, Serum 10/31/2018 [facility] Laboratory Referral None recorded. Procedures None [...] route for 30 days. omega 3 500 [id number] 500 mcg-FA 1 mg-B6 12.5 mg-phytosterol cap Take 1 capsule every day by oral route. Medications Administered None recorded. Vitals None recorded. Lab Results Date Name Specimen Result Interpretation Description Value Range Status Address 10/26/2018 Microalbumin:creatinine Ratio, Urine Microalbumin Random Urine 5 ug/mL Final [facility] Laboratory: [address] Normal Creatinine Random Urine 142.4 mg/dL 20.0-370.0 mg/dL Final [facility] Laboratory: [address] Normal Microalbumin/creatinine (Random Urine) Ratio Calculated 4 mcg/mg creat [facility] Laboratory: [address] 10/26/2018 Hepatitis C Virus RNA, Quant, PCR, Serum or Plasma Normal Hepatitis C Antibody non-reactive non-reactive Final [facility] Signal to Cut-off 0.01 <1.00 Final [facility] Laboratory: [address] Darlene Whitman [facility] 10/26/2018 CBC W/ Auto Diff Wbc 8.15 x10*3/L 4.23-9.07 x10*3/L Final [facility] Rbc 5.84 10*12/L 4.63-6.08 10*12/L Final [facility] [facility] Hemoglobin 17.10 g/dL 13.70-17.50 g/dL Final [facility] [facility]emat[facility]rit 51.4 % 40.1-51.0 % Final [facility] Laboratory: [address] [facility] Mcv 88.0 fL 80.0-100.0 fL Final [facility] Laboratory: [address] [facility] Mch 29.3 pg 25.7-32.2 pg Final [facility] Laboratory: [address] [facility] Mchc 33.3 g/dL 32.3-36.5 g/dL Final [facility] Laboratory: [address] [facility] RDW-SD 47.6 fL 35.1-43.9 fL Final [facility] Laboratory: [address] [facility] Platelet Count 215.0 k/uL 163.0-337.0 k/uL Final [facility] Laboratory: [address] [facility] Mpv 10.9 fL 7.5-11.5 fL Final [facility] Laboratory: [address] [facility] High Neut% 72.8 % 34.0-67.9 % Final [facility] Laboratory: [address] [facility] Low Lymph% 17.2 % 21.8-53.1 % Final [facility] Laboratory: [address] [facility] Mon% 9.2 % 5.3-12.2 % Final [facility] Laboratory: [address] Darlene Byrne [address] [place] [address] Low Eos% 0.4 % 0.8-7.0 % Final [facility] Laboratory: [address] D[address]ene Whitman [facility] Baso% 0.4 % 0.2-1.2 % Final [facility] Laboratory: [address] Whit[address] [facility] High Neut# 5.9 x10*3/L 1.8-5.4 x10*3/L Final [facility] Laboratory: [address] Darl[address] Whitman [facility] Lymph# 1.4 x10*3/L 1.3-3.6 x10*3/L Final [facility] Laboratory: 9055 Darlene Whitman, [facility] Mon# 0.8 x10*3/L 0.3-0.8 x10*3/L Final [facility] Laboratory: [address] Darlene Whitman [facility] Low Eos# 0.03 x10*3/L 0.04-0.54 x10*3/L Final [facility] Laboratory: [address] Darlene Whitman [facility] Baso# 0.03 x10*3/L 0.01-0.08 x10*3/L Final [facility]: [address] [facility] 10/26/2018 CMP, Serum or Plasma Alt 23 U/L 0-55 U/L Final [facility] Laboratory: [address] Darlene Zuñiga [address] Ast 21 U/L 5-34 U/L Final [facility] Laboratory: [address]055 Darlene Byrne [address] [place] [address] Bun 12.0 mg/dL 8.9-20.6 mg/dL Final [facility] Laboratory: [address] Darlene Zuñiga [address] Alk Phos 67 unit/L 40-150 unit/L Final [facility] Laboratory: [address] [facility] High Glucose 125 mg/dL 70-99 mg/dL Final [facility] Laboratory: [address] Darlene Zuñiga [address] Albumin 4.3 g/dL 3.5-5.0 g/dL Final [facility] Laboratory: [address] Darlene Zuñiga [address] Creatinine 1.05 mg/dL 0.72-1.25 mg/dL Final [facility] Laboratory: [address] Darlene Byrne [address] [place] [address] eGFR Non- >60 mL/min/1.73m2 Final [facility] Laboratory: [address] Darlene Zuñiga [address] Total Bilirubin 1.2 mg/dL 0.2-1.2 mg/dL Final [facility] Laboratory: [address] jas [address] eGFR - >60 mL/min/1.73m2 Final [facility] Laboratory: [address] Darlene Zuñiga [place] [address], [facility] Sodium 140 mEq/L 136-145 mEq/L Final [facility] Laboratory: [address] Darlene Zuñiga [place] [address], [facility] Potassium 4.2 mEq/L 3.5-5.1 mEq/L Final [facility] Laboratory: [address] Darlene jas [place] [address], [facility] Chloride 102 mmol/L 98-107 mmol/L Final [facility] Laboratory: [address]055 Darlene jas [place] [address], [facility] Total Protein 7.3 g/dL 6.4-8.3 g/dL Final [facility] Laboratory: [address] Darlene Zuñiga [address] Calcium 10.2 mg/dL 8.4-10.2 mg/dL Final [facility] Laboratory: [address] jas [address] Co2 27.6 mmol/L 22.0-29.0 mmol/L Final [facility] Laboratory: [address]as [address] Anion Gap 10 calc Final [facility] Laboratory: [address] Darlene Zuñiga [address] 10/26/2018 Lipid Panel, Serum Hdl 43 mg/dL 40-60 mg/dL Final [facility] Laboratory: [address] D[address]ene Zuñiga [address] Triglyceride 71 mg/dL 0-149 mg/dL Final [facility] Laboratory: [address] jas [address] VLDL Calc. 14 mg/dL Final [facility] Laboratory: [address] jas [address] cholesterol/HDL Ratio 2.9 mg/dL Final [facility] Laboratory: [address] Darlene Zuñiga [address] non-HDL Cholesterol Calc. 83 mg/dL 0-160 mg/dL Final [facility] Laboratory: [address] jas [address] Cholesterol 126 mg/dL 0-199 mg/dL Final [facility] Laboratory: [address] Darlene Zuñiga [address] LDL Calc. 69 mg/dL 0-130 mg/dL Final [facility] Laboratory: [address]ene jas [address] 10/26/2018 T3, Free, Serum or Plasma T3 Free 3.24 pg/mL 1.71-3.71 pg/mL Final [facility] Laboratory: [address] [place] [address], [facility] 10/26/2018 T4, Free, Serum T4 Free 1.12 NG/dL 0.70-1.48 NG/dL Final [facility] Laboratory: [address] [place] [address], [facility] 10/26/2018 TSH, Serum or Plasma Tsh 1.309 uIU/mL 0.350-4.940 uIU/mL Final [facility] Laboratory: [address] [place] [address], [facility] 10/26/2018 PSA, Serum or Plasma PSA, Total 0.82 NG/mL 0.00-4.00 NG/mL Final [facility] Laboratory: [address] [place] [address], [facility] 10/26/2018 HbA1C (Hemoglobin a1C), Blood High A1C W/eag 6.7 % 1.0-5.7 % Final [facility] Laboratory: [address] [place] [address], [facility] Average Blood Glucose 146 mg/dL Final [facility] Laboratory: [address] [place] [address], [facility] Urinalysis, Dipstick Color Color yellow [facility] ([facility] [place]: [address], [place] Color Appearance cloudy [facility] ([facility]) [place]: [address], [place] Color Glucose negative [facility] [place]: [address] [place] Bilirubin negative [facility] (p) [place]: [address], [place] Color Ketones negative [facility] ([facility]) [place]: [address], [place] Color Specific [place] 1.020 [facility] (p) [place]: [address], [place] Color Blood negative [facility] ([facility]) [place]: [address], [place] Color PH 5.5 [facility] ([facility]) [place]: [address], [place] Color Protein negative [facility] ([facility]) [place]: [address], [place] Color Urobilinogen 0.2 [facility] (p) [place]: [address], [place] Color Nitrites negative [facility] ([facility]) [place]: [address], [place] Color Leukocytes negative [facility] ([facility]) [place]: [address] Allergies Code Code System Name Reaction Severity Status Onset NKDA Problems Name Status Onset Date Source Diabetes Mellitus Active 10/26/2018 Hyperlipidemia Active 10/26/2018 Hypertensive Disorder Active 10/26/2018 Procedures Date Name Performed by 09/13/2017 Back Surgery Information not available 09/13/2016 Colonoscopy Information not available Vaccine List Vaccine Type Tdap 09/13/2015 Social History Smoking Status Never Smoker Past Encounters 10/31/2018 Fatigue Azeem Lock MD: [id number], [address], [place] [address], Ph. 10/26/2018 Adult Health Examination; Body Mass Index 20-24 - Normal; Hyperlipidemia; Hypertensive Disorder; Diabetes Mellitus; Screening for Malignant Neoplasm of Prostate; Hepatitis C Screening Azeem Lock MD: [address], [address], [place] [address], Ph. History of Present Illness None recorded. Review of Systems None recorded. Physical Exam None recorded.
== END | disposition home or self-care (01) ==
LOC: ENDO 10:21
PROVIDERS: ATTEND Internal Medicine Gastroenterology
DX: K21.0 Gastro-esophageal reflux disease with esophagitis (principal); K63.5 Polyp of colon; K29.50 Unspecified chronic gastritis without bleeding; K44.9 Diaphragmatic hernia without obstruction or gangrene; K22.8 Other specified diseases of esophagus; K64.8 Other hemorrhoids; D64.9 Anemia, unspecified; E11.9 Type 2 diabetes mellitus without complications; I10 Essential (primary) hypertension; E78.00 Pure hypercholesterolemia, unspecified; E61.1 Iron deficiency; Z01.810 Encounter for preprocedural cardiovascular examination; Z79.82 Long term (current) use of aspirin; Z79.84 Long term (current) use of oral hypoglycemic drugs; Z68.25 Body mass index [BMI] 25.0-25.9, adult; Z80.0 Family history of malignant neoplasm of digestive organs
CPT/HCPCS: 36415; 43239; 45380; 45384; 82948; 93005; J1980; J2001; J2704; 45378

== ENCOUNTER → 2021-11-22 | Day surgery (SDC) | payer BC, OTHER ==
[2021-11-20 09:44] LABS: ANION GAP 15.4 mmol/L (8-16); CALCIUM 10.5 mg/dL (8.4-10.2); CREATININE, SERUM 1.2 mg/dL (0.72-1.25); POTASSIUM 4.4 mmol/L (3.5-5.1)
[~2021-11-22] MED LIST changes: -EPHEDRINE SULFATE INJ 50 MG/10 ML SYR ONE; -FENTANYL CITRATE/PF 100MCG/2 ML INJ ONE; +JANUMET 50-1,01 EACH PO; -LIDOCAINE HCL 2% LOCAL INJ 5 ML SDV VIAL INJ ONE
[2021-11-22 10:30] VITALS: BP 123/74
== END | disposition home or self-care (01) ==
LOC: OR 06:39
PROVIDERS: ATTEND Internal Medicine Gastroenterology
DX: Z12.11 Encounter for screening for malignant neoplasm of colon (principal); K63.5 Polyp of colon; K64.8 Other hemorrhoids; K21.9 Gastro-esophageal reflux disease without esophagitis; Z71.3 Dietary counseling and surveillance; G47.33 Obstructive sleep apnea (adult) (pediatric); E78.5 Hyperlipidemia, unspecified; E11.9 Type 2 diabetes mellitus without complications; I10 Essential (primary) hypertension; Z01.810 Encounter for preprocedural cardiovascular examination; Z01.812 Encounter for preprocedural laboratory examination; Z20.822 Contact with and (suspected) exposure to COVID-19; Z79.82 Long term (current) use of aspirin; Z79.84 Long term (current) use of oral hypoglycemic drugs; Z79.899 Other long term (current) drug therapy; Z68.25 Body mass index [BMI] 25.0-25.9, adult; Z80.0 Family history of malignant neoplasm of digestive organs
CPT/HCPCS: 36415 ×2; 45380; 80048; 82948; 93005; J1980; J2704; U0002